=== PATIENT | female | born 1960 | race African-American/Black ===

== ENCOUNTER 2017-07-16 13:21 | Emergency (ER) | payer BC ==
[~2017-07-16] VITALS: Ht 177.8 cm; Wt 107.7 kg
[~2017-07-16 13:21] MED LIST: Aspirin E.C. PO; BACTRIM,SEPT1 TABLET PO; CARVEDILOL12.5 MG PO; CARVEDILOL25 MG PO; COZAAR50 MG PO; Ecotrin PO; HYDROCHLOROTHIA25 MG PO; Hydrodiuril,Oretic,E PO; K-DUR10 MEQ PO; LOSARTAN POTAS100 MG PO; NO MEDS; NOHOMEMEDS; ZANTAC150 MG PO; ZOFRAN ODT4 MG PO; ZOFRAN4 MG PO; Zestril,Prinivil PO
[2017-07-16] MEDS ORDERED: NAPROXEN500 MG PO (18:01)
[2017-07-16] MEDS ORDERED: FLEXERIL5 MG PO (18:01)
[2017-07-16] MEDS ORDERED: LIDODERM 5% P1 PATCH TD (18:01)
[2017-07-16 18:30] VITALS: BP 116/74
== END 2017-07-16 18:31 | disposition home or self-care (01) ==
LOC: EME 13:21
DX: S39.012A Strain of muscle, fascia and tendon of lower back, initial encounter (principal); X50.0XXA Overexertion from strenuous movement or load, initial encounter; Y93.F2 Activity, caregiving, lifting; Y99.0 Civilian activity done for income or pay; Y92.199 Unspecified place in other specified residential institution as the place of occurrence of the external cause; I10 Essential (primary) hypertension; Z88.5 Allergy status to narcotic agent; Z88.6 Allergy status to analgesic agent
CPT/HCPCS: 99281; 99283; J1885